=== PATIENT | male | born 1950 | race Caucasian/White ===

== ENCOUNTER 2020-06-06 09:41 | Emergency (ER) | payer MEDICARE ==
--- NOTE | 2020-06-06 11:41 | ED Physician Documentation ---
History of Present Illness - Stated complaint Stated Complaint: "BLOOD CLOT" - Chief complaint Chief Complaint: Ext Problem - History obtained from History obtained from: Patient - History of Present Illness Timing: Last night - Additonal information Additional information: 69-year-old male with a clotting disorder is on Coumadin for DVT and he has developed symptoms in his left posterior calf and knee last night. He is concerned about the possibility of another DVT. Review of Systems Constitutional: denies: Fever Respiratory: denies: Cough GI: denies: Vomiting Skin: denies: Rash Musculoskeletal: reports: Extremity pain, Joint pain. denies: Neck pain, Back pain Neurologic: denies: Generalized weakness, Focal weakness, Numbness PD PAST MEDICAL HISTORY - Past Medical History Past Medical History: Yes Cardiovascular: Deep vein thrombosis Respiratory: None Neuro: None Endocrine/Autoimmune: None GI: None : None HEENT: None Psych: None Musculoskeletal: None Derm: None - Past Surgical History Past Surgical History: Yes - Allergies Allergies/Adverse Reactions: Allergies Allergy/AdvReac Type Severity Reaction Status Date / Time No Known Drug Allergies Allergy Verified 06/06/20 09:57 - Social History Does the pt smoke?: No Smoking Status: Never smoker - Immunizations Immunizations are current?: Yes PD ED PE NORMAL - Vitals Vital signs reviewed: Yes (mild hypertension ) - General General: Alert and oriented X 3, No acute distress, Well developed/nourished - HEENT HEENT: Atraumatic, PERRL, EOMI - Respiratory Respiratory: No respiratory distress - Derm Derm: Normal color, Warm and dry, No rash - Extremities Extremities: No deformity, No edema, No calf tenderness / cord (conditioned muscles ) - Neuro Neuro: Alert and oriented X 3, 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, No motor deficit, No sensory deficit, Normal speech Eye Opening: Spontaneous Motor: Obeys Commands Verbal: Oriented GCS Score: 15 - Psych Psych: Normal mood, Normal affect Results - Vitals Vitals: Vital Signs - 24 hr 06/06/20 06/06/20 09:51 11:50 Temperature 36.8 C 36.9 C Heart Rate 68 69 Respiratory 18 16 Rate Blood Pressure 136/88 H 124/82 H O2 Saturation 99 99 Oxygen O2 Source Room air - Labs Labs: Laboratory Tests 06/06/20 10:53 Whole Blood INR 2.7 H PD MEDICAL DECISION MAKING - ED course Complexity details: considered differential, d/w patient ED course: Otherwise well 69-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 He has a history of DVT and is on Coumadin and he has had a recurrence of DVT when he was between procedures and off of his Coumadin. Today he is worried about some calf pain that he is having and wants to get a duplex ultrasound. He denies shortness of breath or chest pain. His duplex ultrasound is without evidence of deep vein thrombosis and his home blood INR is 2.7. He is reassured and happy. Departure - Departure Disposition: 01 Home, Self Care Clinical Impression: Pain of left calf Instructions: ED Strain Muscle Ext Follow-Up: Your, doctor [Other] Discharge Date/Time: 06/06/20 12:10
[2020-06-06 11:51] VITALS: BP 124/82
--- NOTE | 2020-06-06 11:58 | Ultrasound Report ---
PROCEDURE: Duplex Ext Veins Left INDICATIONS: Hx DVT post calf pain TECHNIQUE: Real-time imaging, as well as color and pulse Doppler interrogation, were performed of the lower extr emity deep veins from the inguinal ligament to the popliteal fossa. COMPARISON: None. FINDINGS: The deep veins are normally compressible, and free of intraluminal thrombus. Color and pu lse Doppler demonstrate normal phasic intraluminal flow. There is normal augmentation response to di stal compression maneuver. IMPRESSION: No evidence of deep vein thrombosis involving the left lower extremity. Reviewed by: Janneth Davis MD, PhD on 06/06/2020 11:57 AM PDT Approved by: Janneth Davis MD, PhD on 06/06/2020 11:57 AM PDT Station ID: [id number]
== END 2020-06-06 12:10 | disposition home or self-care (01) ==
LOC: ED 09:41
DX: M79.662 Pain in left lower leg (principal); Z86.718 Personal history of other venous thrombosis and embolism; Z79.01 Long term (current) use of anticoagulants
CPT/HCPCS: 85610; 99282; 99284